=== PATIENT | female | born 1970 | race African-American/Black ===

== ENCOUNTER 2018-05-14 19:59 | Emergency (ER) | payer MEDICAID, OTHER ==
[~2018-05-14] VITALS: Ht 152.4 cm; Wt 109.0 kg
[2018-05-14] MEDS ORDERED: DIAZEPAM 5 MG/ML 2ML CPJ IM ONE (22:45)
[2018-05-14] MEDS ORDERED: HYDROCODONE/ACETAMINOPHEN 5/325MG TABLET PO ONE (22:45)
[2018-05-15] MEDS ORDERED: CLONIDINE 0.2MG TABLET PO ONE
[2018-05-15] MEDS ORDERED: LOSARTAN POTASSIUM 100 MG TABLET PO ONE (00:45)
[2018-05-15] MEDS ORDERED: KETOROLAC 60MG/2ML VIAL IM ONE (00:45)
[2018-05-15] MEDS ORDERED: HYDROCODONE/ACETAMINOPHEN 5/325MG TABLET PO ONE (01:15)
[2018-05-15 02:54] VITALS: BP 144/96
== END 2018-05-15 03:01 | disposition home or self-care (01) ==
LOC: ER 19:59
DX: S39.012A Strain of muscle, fascia and tendon of lower back, initial encounter (principal); I10 Essential (primary) hypertension; E11.9 Type 2 diabetes mellitus without complications; Z90.49 Acquired absence of other specified parts of digestive tract; X58.XXXA Exposure to other specified factors, initial encounter; Y93.89 Activity, other specified; Y92.9 Unspecified place or not applicable
CPT/HCPCS: 72070; 72100; 96372; 99284; J1885; Z7610

== ENCOUNTER 2022-02-06 05:23 | Emergency (ER) | payer MEDICAID, OTHER ==
[~2022-02-06] VITALS: Ht 162.6 cm; Wt 111.0 kg
[~2022-02-06 05:23] MED LIST: CYM20 PO; INSU500I SUBCUT; LIRA3PEN SQ; LOSA100T32 PO; METF-907 PO; PROP20TA19 PO; RIZA10TA97 PO; ROSU20TA2 PO; TOPI100C5 PO
[2022-02-06] MEDS ORDERED: METHYLPREDNISOLONE SOD SUCC 125 MG/2 ML VIAL IV STA (05:37)
[2022-02-06 06:11] LABS: BASOPHILS % 0.6 % (0.0-2.0); EOSINOPHILS % 1.4 % (0.0-5.0); HEMATOCRIT. 35.4 % (36.0-48.0); HEMOGLOBIN. 11.4 g/dL (12.0-16.0); LYMPHOCYTES % 25.4 % (20.0-50.0); MEAN CORPUSCULAR HEMOGLOBIN 28.4 pg (28.0-32.0); MEAN CORPUSCULAR VOLUME 88.5 fL (81.0-99.0); MEAN PLATELET VOLUME 8.5 fl (7.4-10.4); MONOCYTES % 7.6 % (2.0-8.0); PLATELET 280 x1000/uL (130-400); RED CELL DISTRIBUTION WIDTH 16.3 % (11.6-14.6)
[2022-02-06 06:21] LABS: CHLORIDE 111 mEq/L (98-107)
[2022-02-06] MEDS ORDERED: ASPIRIN 81MG TABLET PO ONE (07:30)
[2022-02-06] MEDS ORDERED: ENOXAPARIN 120MG/0.8ML SYR SUBCUT ONE (07:30)
[2022-02-06] MEDS ORDERED: FUROSEMIDE 20MG/2ML VIAL IVP ONE (07:30)
[2022-02-06] MEDS ORDERED: NITROGLYCERIN 0.4MG TABLET SL SL ONE (13:45)
[2022-02-06] MEDS ORDERED: FUROSEMIDE 40MG/4ML VIAL IVP ONE (13:45)
[2022-02-06 14:43] VITALS: BP 188/106
== END 2022-02-06 15:05 | disposition short-term general hospital (02) ==
LOC: ER 05:39 → CANRESERV 12:43 → ENRESERV 12:43 → ER 15:05 → CANBEDREQ 18:40
DX: R06.03 Acute respiratory distress (principal); J81.1 Chronic pulmonary edema; I11.0 Hypertensive heart disease with heart failure; I50.9 Heart failure, unspecified; I21.4 Non-ST elevation (NSTEMI) myocardial infarction; F41.9 Anxiety disorder, unspecified; E11.9 Type 2 diabetes mellitus without complications; J40 Bronchitis, not specified as acute or chronic; Z79.4 Long term (current) use of insulin; Z90.49 Acquired absence of other specified parts of digestive tract; Z20.822 Contact with and (suspected) exposure to COVID-19
CPT/HCPCS: 36415; 71045; 80053; 82962; 83880; 84484; 85025; 87426; 93005; 96361; 96374; 96375; 96376; 99291; C9803; J1650; J1940; J2930; Z7610

== ENCOUNTER 2024-04-12 19:36 | Emergency (ER) | payer MEDICAID ==
[~2024-04-12] VITALS: Ht 152.4 cm; Wt 112.0 kg
[~2024-04-12 19:36] MED LIST changes: -LOSA100T32 PO; +LOSA100T33 PO
[2024-04-12 19:51] VITALS: TEMP 98.4; O2SAT 98
[2024-04-12] MEDS ORDERED: MORPHINE SULFATE 2 MG/ML INJ (NOT FOR IM USE) IV ONE (20:45)
[2024-04-12] MEDS ORDERED: ONDANSETRON HCL 4MG/2ML INJ IV ONE (20:45)
[2024-04-12] MEDS ORDERED: FUROSEMIDE 40MG/4ML VIAL IVP SCH (20:45)
[2024-04-12 20:54] LABS: HEMATOCRIT. 42.7 % (36.0-48.0); HEMOGLOBIN. 14.1 g/dL (12.0-16.0); LYMPHOCYTES % 32.9 % (20.0-50.0); MEAN CORPUSCULAR HEMOGLOBIN 30.3 pg (28.0-32.0); MEAN CORPUSCULAR VOLUME 91.9 fL (81.0-99.0); MEAN PLATELET VOLUME 10.1 fl (7.4-10.4); MONOCYTES % 9.3 % (2.0-8.0); NEUTROPHILS % 55.8 % (40.0-76.0); PLATELET 217 x1000/uL (130-400); RED BLOOD CELL COUNT 4.64 mill/uL (4.2-5.4); WHITE BLOOD COUNT 7.8 x1000/uL (4.5-11.0)
[2024-04-12 20:55] LABS: CHLORIDE 104 mEq/L (98-107); POTASSIUM 3.3 mEq/L (3.5-5.1); SODIUM 140 mEq/L (136-145)
[2024-04-12 20:56] LABS: CARBON DIOXIDE 30 mEq/L (21-32)
[2024-04-12 20:57] LABS: CALCIUM 9.7 mg/dL (8.7-10.4)
[2024-04-12 21:01] LABS: CREATININE 0.9 mg/dL (0.6-1.0); GLUCOSE 175 mg/dL (70-105); UREA NITROGEN BLOOD 11 mg/dL (9-23)
[2024-04-12 21:01] LABS: DIFFERENTIAL COMMENT 1
[2024-04-12 21:02] LABS: TROPONIN I HIGH SENSITIVITY 20 ng/L (3.0-34)
[2024-04-12] MEDS ORDERED: IPRATROPIUM/ALBUTEROL 0.5-3(2.5)MG/3ML NEB HHN ONE (21:45)
[2024-04-12] MEDS: MORPHINE SULFATE 2 MG/ML INJ (NOT FOR IM USE) IV NR (22:29)
[2024-04-12] MEDS: ONDANSETRON HCL 4MG/2ML INJ IV NR (22:30)
[2024-04-12] MEDS: METHYLPREDNISOLONE SOD SUCC 125MG/2ML (ACT-O-VIAL) IV ONE (22:30)
[2024-04-12] MEDS: FUROSEMIDE 40MG/4ML VIAL IVP NR (23:15)
[2024-04-13 00:38] VITALS: BP 162/84; PULSE 99; RESP 20; O2SAT 99
[2024-04-13] MEDS ORDERED: IPRATROPIUM/ALBUTEROL 0.5-3(2.5)MG/3ML NEB HHN NR (05:45)
== END 2024-04-13 01:21 | disposition short-term general hospital (02) ==
LOC: ER 19:36
DX: J44.1 Chronic obstructive pulmonary disease with (acute) exacerbation (principal); I11.0 Hypertensive heart disease with heart failure; I50.9 Heart failure, unspecified; E11.9 Type 2 diabetes mellitus without complications; J45.909 Unspecified asthma, uncomplicated; Z20.822 Contact with and (suspected) exposure to COVID-19; Z79.899 Other long term (current) drug therapy
CPT/HCPCS: 80048; 83880; 85025; 84484; 36415; 71045; 93005; 96374; 96375; 99285; 87426; J1940; J2919; J2405; J2270; Z7610